=== PATIENT | female | born 1965 | race Caucasian/White ===

== ENCOUNTER 2020-03-26 18:14 | Emergency (ER) | payer MEDICARE, SELFPAY ==
[2020-03-26 18:15] VITALS: BP 131/86; PULSE 101; RESP 15; TEMP 36.8; O2SAT 97; BMI 19.3
--- NOTE | 2020-03-26 18:21 | ED.RN ---
states this is the worst ever seizure.
--- NOTE | 2020-03-26 18:37 | CT_ITS ---
We are attempting to reach an attending provider to discuss findings. An addendum with communication details will be sent when the communication is complete. STUDY: CT BRAIN WITHOUT CONTRAST REASON FOR EXAM: Female, 55 years old. 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 H/O 2 BRAIN TUMORS, FLUID FILLED CYST ON TOP OF HEAD. SX IN FEBRUARY, SUTURES ON TOP OF HEAD. RADIATION DOSAGE (If Supplied By Facility): CTDIvol = ( 44.99 ) mGy, DLP = ( 745.49 ) mGycm TECHNIQUE: Transaxial CT imaging of the brain was performed without administration of intravenous contrast material. Individualized dose optimization techniques were used for this CT. COMPARISON: July 25, 2014 FINDINGS: Left frontal hypodense lesion with a dense layering hematocrit effect noted dependently. This demonstrates interval evolution of previous exam. It measures 3.2 x 3 cm in AP and transverse dimensions. 2 drains terminate within it. There is a 6 x 5 mm coarse calcification noted centrally. This may represent a bone fragment from the left frontal jenny hole. Adjacent dense 5 mm hemorrhage is also suspected. New left frontal drain terminates just lateral to the left lateral ventricle. There appears to be a secondary smaller catheter terminating in the left frontal lobe more anteriorly. Left frontal jenny hole and metallic plate. Subjacent biconvex hypodense extra-axial fluid collection measures 9 x 38 mm. The right occipital cyst appears larger and measures 4.2 x 2.7 cm in transverse dimensions. Normal size ventricles and extra-axial spaces for the patient''s age. Normal white matter tracts of the cerebral hemispheres. Normal basal ganglia and thalami. Normal brainstem. Normal cerebellum. There is no intracranial hemorrhage. There are no findings of an acute ischemic infarction. Normal visualized paranasal sinuses. CT/Brain/Head without Contrast IMPRESSION: Left frontal lesion now appears cystic and hemorrhagic status post placement of 2 frontal drains. There is also a hypodense extra-axial fluid collection which may represent remote hemorrhage or a hygroma. Possible depressed bone fragment versus dystrophic calcification. Interval enlargement right occipital cyst. Electronically Signed: William Marshall MD at 20:07 EDT , Service support ,
[2020-03-26 19:07] LABS: Absolute Lymphocyte Count 1.48 X10^3/uL (0.83-4.51); Absolute Neutrophil Count 1.3 X10^3/uL (2.0-7.7); Basophil# 0.06 X10^3/uL; Basophil% 1.6 % (0-1); Eosinophil# 0.29 X10^3/uL; Eosinophils% 7.8 % (0-5); Hematocrit 28.5 % (37-47); Hemoglobin 8.9 g/dL (12.0-15.0); Lymphocyte # 1.48 X10^3/ul (4.0); Lymphocyte % 39.6 % (19-41); Mean Corp Hgb Conc 31.2 g/dL (32-36); Mean Corpuscular Hgb 29.4 pg (27.0-32.0); Mean Corpuscular Volume 94.1 fL (81-99); Mean Platelet Vol. 10.9 fl (6.2-12.0); Monocyte# 0.59 X10^3/uL; Monocyte% 15.8 % (0-10); NRBC Flagged by Analyzer 0 % (0-5); Neutrophil # 1.31 X10^3/uL (2.7-7.7); Neutrophil % 34.9 % (47-70); Platelet Count 135 K/mm3 (150-450); RBC Distribution Width CV 18.4 % (11.6-14.6); Red Blood Count 3.03 M/mm3 (4.2-5.4); White Blood Count 3.7 K/mm3 (4.4-11.0)
[2020-03-26] MEDS: Ondansetron 4 MG/2 ML Vial IV (19:18)
[2020-03-26] MEDS: LORazepam 2 MG/ML Syringe 1 MG IV ×2 (19:18→19:40)
[2020-03-26 19:19] LABS: Anion Gap 5 (5-15); BUN 12 mg/dL (7-18); BUN/Creat Ratio 16.6 RATIO (10-20); Calcium,Total 8.7 mg/dL (8.5-10.1); Chloride 107 mmol/L (98-107); Creatinine, Serum 0.72 mg/dL (0.55-1.02); EST Glomerular Filtration Rate 88 mL/min (>60); Est Glom Filt Rate - Afr Amer 107 mL/min (>60); Estimated Creatinine Clearance 72.41 ml/min; Glucose 89 mg/dL (74-106); Potassium 3.8 mmol/L (3.5-5.1); Sodium Level 141 mmol/L (136-145)
[2020-03-26 19:21] VITALS: BP 142/90; PULSE 92; RESP 20; O2SAT 94
[2020-03-26 20:12] VITALS: BP 115/79; PULSE 85; RESP 14; O2SAT 94
--- NOTE | 2020-03-26 20:13 | ED.RN ---
pt's focal seizure has stopped at this time.
[2020-03-26 20:30] LABS: International Normalized Ratio 1.1; Prothrombin Time (Protime)PT. 14.1 SECONDS (11.7-14.9)
[2020-03-26 20:39] LABS: Partial Thromboplast Time 91.7 Seconds (24.1-36.2)
[2020-03-26 20:42] VITALS: BP 104/65; PULSE 78; RESP 14; O2SAT 95
[2020-03-26 21:06] LABS: Partial Thromboplast Time 39.6 Seconds (24.1-36.2)
--- NOTE | 2020-03-26 21:35 | ED.VISSUMM ---
- ER Visit Summary Date of Service: 03/26/20 Chief Complaint: Seizure History of Present Illness: The patient is a [address] Mccann a neuro oncologist and Dr. Estes a neurosurgeon at [facility]. She has a history of breast cancer with metastases to the brain. She also has a cyst on her brain. She has a history of grand mal seizures. The last one prior today was March 07. reports patient had a grand mal seizure that last approximately 5 minutes just prior to coming emergency department. She then developed focal seizures that consist of her right hand twitching and blinking. This has not stopped over the past [address] Jones he last week and had adjustment of her Ommaya reservoir to access the cyst. She was scheduled to see him again next after having an MRI next Tuesday. Physical Examination: Vitals: Stable. Afebrile. General: Well-nourished and well-developed. Head: Normocephalic atraumatic. Neck: Supple, no lymphadenopathy. No JVD. Nontender. Cardiovascular: Regular rate and rhythm. No murmurs. Respiratory: No respiratory distress. Clear to auscultation bilaterally. Abdominal: Soft, nontender, nondistended, normal bowel sounds. No guarding, rebound, or peritoneal signs. Back: Nontender. Extremities: Nontender, no edema. Skin: Normal color, no rash. Neurologic: Alert and oriented ?3. Cranial nerves II through XII are intact. Normal strength and sensation. Patient does have twitching of her right hand, right face, and blinking of her right eye that she cannot control. She is able to speak through this. Psych: Normal affect. Test Results: CBC shows a white count of 3.7 with an H&H of 8.9 and 28.5, platelets 135, stable neutrophils of 35, monocytes of 16, eosinophils of 8. Chem-7 is normal. INR is 1.1. PTT is 91.7. However, I suspect that this was a short draw and repeat is 39.6. Clinical Impression(s) from Imaging Studies Brain CT 03/26/20 18:37 IMPRESSION: Left frontal lesion now appears cystic and hemorrhagic status post placement of 2 frontal drains. There is also a hypodense extra-axial fluid collection which may represent remote hemorrhage or a hygroma. Possible depressed bone fragment versus dystrophic calcification. Interval enlargement right occipital cyst. Electronically Signed: William Marshall MD at 20:07 EDT , Service support , ADDENDUM: 03/26/202042 IMPRESSION: Left frontal lesion now appears cystic and hemorrhagic status post placement of 2 frontal drains. There is also a hypodense extra-axial fluid collection which may represent remote hemorrhage or a hygroma. Possible depressed bone fragment versus dystrophic calcification. Interval enlargement right occipital cyst. N.B. : The above information has been verbally conveyed by William Marshall MD to Jeremías Clifford MD, , on 03/26/2020 20:36:56 (ET). Electronically Signed: William Marshall MD at 20:07 EDT , Service support , Emergency Department Course and Treatment: Patient was given a milligram of Ativan IV with improvement in her focal seizures, but they did continue. She is given another dose of Ativan IV and they have completely resolved. She is resting comfortably. She refused pain medications. Treatment Plan: Patient was discussed with Dr. Lozano, a neurosurgeon at [facility], who is accepted her in transfer. Disposition: Transferred in improved, but serious condition. Impression: 1. Focal seizures. 2. Left frontal cyst with hemorrhage. 3. Breast cancer with metastases to brain. 4. Critical care time 30 minutes. This note was generated with [employer] software. It may contain incorrect words, spelling, and punctuation that were not noted in review of the chart prior to signing ED Disposition - Plan for ED Patient: Referrals: Marcos Londono DO [Primary Care Provider] -
--- NOTE | 2020-03-26 21:36 | ED.RN ---
[facility], h62, bed [address]. dr. horta. [phone]
[2020-03-26 22:00] VITALS: BP 127/86; PULSE 85; RESP 14; O2SAT 98
== END 2020-03-26 23:03 | disposition short-term general hospital (02) ==
PROVIDERS: Emergency Provider Emergency Medicine; PCP Student in an Organized Health Care Education/Training Program
DX: I61.1 Nontraumatic intracerebral hemorrhage in hemisphere, cortical (principal); G93.0 Cerebral cysts; G40.409 Other generalized epilepsy and epileptic syndromes, not intractable, without status epilepticus; C79.31 Secondary malignant neoplasm of brain; Z85.3 Personal history of malignant neoplasm of breast
CPT/HCPCS: 36591; 70450; 80048; 85025; 85610; 85730; 96374; 96375; 96376; 99285; J7030; A4216; J2405

== ENCOUNTER 2020-09-09 13:00 | Outpatient (RCR) | payer MEDICARE, MEDICAID, SELFPAY ==
--- NOTE | 2020-05-05 14:23 | HP.OTEVAL_ITS ---
Patient's Visit Information ALVERTO KABA is a 55 year old F, referred to Occupational Therapy by MALIHA MONZON, with a diagnosis of brain tumor, weakness in right hand. Date of Evaluation: 05/05/20 Occupational Therapist: Camelia Jin, OTR/Yadira, CHT - Subjective This 55 year old female was seen for OT eval with dx of right hand weakness, brain tumor. pt states she has noticed weakness. pt states she has noticed weakness of her dominate hand for several months. pt states weakness has improved some but most difficulty is with writing and eating. pt would like to get more function back. - ADLs Dressing: Button shirt, Pants, Shoes Fasteners: Tie shoes, Buttons, Zippers, Snaps Eating: Bring food to mouth, Use silverware, Cut food Grooming: Squeeze toothpaste on, [place] teeth - ROM ROM Comments: pt demo ROM WNL - Strength [employer] Ax Consultant: right 45# left 55# Lateral Pinch: right 8# left 10# Tripod Pinch: right 8# left 10# Tip-to-Tip Pinch: right 2# left 6# - Sensation Sensation Comments: denies - In-Hand Manipulation Finger to Palm Translation: Mild - Right, Moderate - Right, Normal - Left Palm to Finger Translation: Mild - Right, Normal - Left Shift: Mild - Right, Normal - Left Comments: pt demo a tremor with writing. slow initiation of writing - Quick DASH-Disab of Arm,Shoulder& Hand Quick DASH Score: 43.1800 - Goals Goal:: pt will demo a increase in right control panel operator strength by 15# or greater to return pt to PLOF with ADLs and IADls by d/c Goal:: pt will demo the ability to use right UE for self feeding 4/5 trials by d/c. pt will demo the ability to write name legibly 4/5 trials by d/c. Pt will demo the ability to manipulate fasteners at ind. level 4/5 trials to increase pts ind. with ADls and IADls by d/c - Rehabilitation General Assessment: pt demo with good functional ROM of right UE but limited with strength and motor planning to perform ADLs, IADls and wrting tasks at a IND. level. pt would benefit from skilled OT services 2-3 x week for 6 weeks to help pt reach her maximum rehab potential. Today therapsit ed. pt on FMS tasks to increase motor planning. will cont. to challenge pt with PRE and possible use of ad. eq. pt demo understanding and agree to POC. Due to pts delay in word response and difficulty with reading and recall of letters and letters of her last name pt would benefit from skilled Speech therapy services. Therapist chauncey peters to contact PA for speech order waiting on reply. Rehabilitation Potential: Good - Anticipated Interventions A/AAROM/PROM, Strengthening, Joint Protection/Energy Conservation, Ergonomic Education, Fine Motor Coord/Marky, Neuro Reeducation, Visual/Perceptual Skills, ADL Training, Education re assistive Equipment - Visit Plan Frequency: 2-3x /Week Duration: 6 Weeks TEXT: Thank you for the opportunity to evaluate your patient. For Medicare and Medicare HMO plans, please review the plan of care and approve it. It will need to be FAXED BACK to us at [phone] for Medicare purposes. Please let me know if there are questions or concerns regarding this plan of care. Physician Signature: Date:
--- NOTE | 2020-07-01 13:53 | HP.SP.AD ---
History - History Date of Eval: 07/01/20 Medical Diagnosis (from RX): Brain metastasis Date of Onset of Diagnosis: 06/02/2020 Previous speech therapy: No Other Relevant Medical History/Diagnoses/Surgery: Pt had breast cancer in 2011, which spread to the brain in 2013. Her cancer has since been removed: surgeries for brain tumor removal in 2013 and 2015. Since, she has had additional surgeries for cyst drainage in 2017 and 2019. Most recent surgery was for cyst fenestration in April 2020. Pt also reported she has constant tinnitus bilaterally, worse on the left side. Since 2018, the pt reported she has had cognitive-linguistic difficulties, including difficulty with word retrieval, slower rate of speech especially when tired, and difficulty with short term memory. She noted her symptoms get better following her surgeries, then will worsen over time. Pt suspects her symptoms correlate with cyst growth. 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 Visual Assistive Devices: Glasses Patients Living Arrangements: With Significant Other Patient Allergies - Allergies Allergies Gadolinium-MRI Contrast Medium [Gadolinium-Contrast Medium - MRI] Allergy (Unknown, Verified 03/26/20 19:49) Swelling arm pain & swelling clarithromycin [From Biaxin] Allergy (Verified 03/26/20 19:49) Other codeine Allergy (Verified 03/26/20 19:49) Vomiting lamotrigine [From Lamictal] Allergy (Verified 03/26/20 19:50) Hives CLQT - CLQT CLQT Administered: Yes CLQT: Cognitive Linguistic Quick Test (CLQT) is a criterion - referenced assessment designed for adults between the ages of 18 and 89 with known or suspected neurological dysfuntions. The CLQT is to assess strength and weaknesses in five cognitive domains. Severity ratings are within normal limits, mild, moderate, severe deficits. The subtests are as follows: Date: 07/01/20 - Attention Attention: WNL - Memory Memory: Mild - Executive Functions Executive Functions: WNL - Language Language: Mild - Visuospatial Skills Visuospatial Skills: WNL - Composite Severity Rating Composite Severity Rating: WNL - Clock Drawing Severity Rating Clock Drawing Severity Rating: WNL - CLQT Comments 07/01/2020 Pt presents with mild cognitive-linguistic impairment characterized by functional deficits in fluency, short term memory, numerical processing. Although pt scored WNL for executive functions (planning, organization, and reasoning), pt would benefit from therapy addressing these cognitive processes as pt exhibits delayed processing completing tasks. In conversation, she presents with mild/moderate deficits in word retrieval, which negatively affects her conversational fluency and her ability to convey messages in social and medical settings. Pt additionally noted she manages her finances at home, but has great difficulty with numerical processing. Plan - Plan Plan: Will recommend cognitive-linguistic therapy to address functional deficits in short term memory, fluency, numerical processing, and executive functions. Without cognitive-linguistic therapy, pt is at risk for decreased independence completing daily living tasks (personal finances) and increased difficulty communicating social and medical wants and needs. - Recommendations Treatment Warranted: Yes - Frequency Frequency: 1x/Week Duration: Indefinite - Prognosis Prognosis: Excellent - Goals that are Established: Determination:: Goals will be added/modified as deemed necessary and appropriate. Therapy will be discontinued when results of re-evaluation indicate therapy is no longer needed or lack of progress has been documented. - Goal #1-5 Goal #1: Pt will verbalize delayed recall of novel information (e.g. reading passage, functional message) with 90% accuracy given min verbal cues for use of strategies across 3 consecutive sessions to improve short term memory. Goal #2: Pt will complete generative naming tasks X10-15 words in 1 minute given min verbal cues across 3 consecutive sessions to improve conversational fluency. Goal #3: Pt will complete complex numerical processing tasks with 90% accuracy independently across 3 consecutive sessions to . Goal #4: Pt will complete executive functioning tasks (e.g. reasoning, organization, planning) with 90% accuracy given min verbal cues for use of strategies across 3 consecutive sessions to promote independence completing daily living tasks. Education - Patient has Indicated that the Following Identified Educational Needs: None The Patient has indicated that they have no educational or learning abilities that may effect their care.: Yes - Patient Instruction Patient Education: Diagnosis, Treatment Plan, Goals Person Taught: Patient Teaching Method: Discussion Response to teaching: Verbalize understanding
--- NOTE | 2020-07-22 14:34 | HP.OTDCSUM ---
It has been my pleasure to treat ALVERTO KABA under orders from MALIHA MONZON, for the diagnosis of brain tumor, weakness in right hand for a total of 17 visit(s). Please see the following information for a summary of their discharge status. % Improvement: 80 Objective/Function: pt alex ex. well will progress to H&W. right orthopaedic doctor strength 55#. left orthopaedic doctor strength 50#. right lateral pinch 11# a increase from 8#. right tripod pinch 13# a increase from 8#. tip pinch 9# a increase from 2#. pt has made good gains with strength and FMS. p Patient Goals: Regain Strength, Improve Fine Motor Skills, Use Hand/Wrist/Arm Normally Again, Be More Independent in ADLS Goal:: pt will demo a increase in right orthopaedic doctor strength by 15# or greater to return pt to PLOF with ADLs and IADls by d/c Goal:: pt will demo the ability to use right UE for self feeding 4/5 trials by d/c. pt will demo the ability to write name legibly 4/5 trials by d/c. Pt will demo the ability to manipulate fasteners at ind. level 4/5 trials to increase pts ind. with ADls and IADls by d/c Plan: D/C with HEP and transition to H&W If there are questions or concerns regarding this patient's occupational therapy, please fell free to call me at [phone]. Thank you for the referral of this patient. Sincerely, Camelia Jin, OTR/L, CHT
--- NOTE | 2020-07-30 10:56 | HP.PTEVAL ---
Patient's Visit Information ALVERTO KABA is a 55 year old F referred to Physical Therapy by MALIHA MONZON with a diagnosis of Brain tumor, gait. Date of Evaluation: 07/29/20 Physical Therapist: Dwight Puentes DPT - Visit Plan Frequency: 1x/Week Duration: 4-6 Weeks Plan: Plan to inc BLE strength, inc core strength and stability, and inc dynamic balance. Interventions for dynamic balance may include gait activities w/ multitasking components since impairments seem to be inline w/ multitasking during gait. Since pt is only coming in 1x per week a focus should be on a good LE and core strengthening HEP. Also plan to perform 6MWT next session. - Subjective Pt had brain tumor in past, removed via surgery April 09. Was going to to OT for R hand weakness. Has noticed BLE weakness, but more so on the R. Also feels that she loses her balance sometimes more to the R. Denies n/t. History of R KIARA d/t AVN and states that her L hip sometimes hurts when she stands form a chair and negotiates stairs, also d/t AVN. Sedentary lifestyle, states she sleeps most of the time. Has one flight of stairs at home and a few YAYO home. handles all cleaning, laundry, and cooking. - Pain L hip Pain Intensity (Out of 10): 0 Pain Intensity Range: 0, 2 Comment: Hurts sometimes when standing from a chair or negotiating stairs. - Objective POSTURE: WNL. Goof posture noted. no lateral wt. shifting noted. PALPATION: WNL. No pain with palpation of BLEs. ROM: WNL. Pt. had good ROM of BLEs, good HS length. No pain with ROM testing. MMT: L hip IR 3+/5; R hip ER 3+/5, IR 3/5; R knee flex 3/5; R ankle dorsi 3+/5. All other LE movements 4-/5. NEURO: WNL. No sensory changes. No DTR of BLEs. GAIT: Dec gurpreet, no other deviations noted. Negotiated 1 flight of stairs w/ reciprocal pattern and no issues. BALANCE: Normal static balance. Dec dynamic balance. Pt did not display LOB during FGA, but did stray from course during vertical head turns, eyes closed, and w/ narrow JUAN CARLOS. 5x [id number]: 19.2 s - Balance Scores Functional Gait Assessment Score: 24 % Disability: 20.0000 - Goals Goal 1:: LTG: Pt to be I w/ HEP. Goal Time Frame: 4-6 Weeks Goal 2:: STG: Pt will display inc LE strength by at least 1/2 grade in all planes. Goal Time Frame: 2-4 Weeks Goal 3:: LTG: Pt will display inc LE stength by at least 1 grade in all planes. Goal Time Frame: 4-6 Weeks Goal 4:: LTG: Pt will display RLE strength equal to that of LLE. Goal Time Frame: 4-6 Weeks Goal 5:: LTG: Pt will display inc dynamic balance by scoring at least 28 on the FGA. Goal Time Frame: 4-6 Weeks - Rehabilitation Potential Physical Therapy Diagnosis: Pt displays dec BLE strength, dec core strength, and dec dynamic balance. PT intervention indicated to address stated deficits and inc functional mobility by increasing BLE strength, increasing core strength and stability, and increasing dynamic balance. Rehabilitation Potential: Good - Anticipated Interventions Patient/Client Instruction: Educate patient on: Plan of Care, Benefits of Fitness Program For the Purpose of:: To improve health and function, To foster healthy habits, To improve self management Therapeutic Exercise to Include: Strength training, Endurance training, Balance training, Coordination, Flexibilty training, Gait and locomotor training, Dynamic Lumbar Stabilization For the Purpose of:: To improve muscle performance and motor function, To improve performance and independence with ADL's, To improve ability of physical actions for home/community/work/leisure, To improve gait and locomotor functions, To increase flexibility/ROM, To improve endurance, To improve balance, To improve safety with gait Thank you for the opportunity to evaluate your patient. For Medicare and Medicare HMO plans, please review the plan of care and approve it. It will need to be FAXED BACK to us at [phone] for Medicare purposes. For Medicare only, by signing this I certify the plan of care. Please let me know if there are questions or concerns regarding this plan of care. Physician Signature: Date:
--- NOTE | 2020-09-09 14:56 | HP.SP.DC_ITS ---
ST Discharge Summary - Discharged: Discharge: The pt has been discharged from speech therapy services effective 09/09/2020 per pt request. She feels that she has learned ample compensatory strategies to improve memory, organization, and word retrieval and feels comfortable discharging from skilled speech therapy at this time. The pt has participated in speech therapy since 07/01/2020 and attended 9 additional sessions where she has participated in cognitive training tasks and been trained in strategies to improve memory (association, visualization, chunking, repetition), organization (visual aids for medication counting/sorting, self- talk), and word retrieval (semantic feature analysis, alphabet scanning). Would recommend speech therapy services in the future if pt notes increased difficulty in the above mentioned areas of cognition as the pt was highly motivated and demonstrated great progress during POC.
== END 2020-09-09 19:00 | disposition home or self-care (01) ==
LOC: PT 13:00
PROVIDERS: PCP Student in an Organized Health Care Education/Training Program
DX: D49.6 Neoplasm of unspecified behavior of brain (principal); R26.9 Unspecified abnormalities of gait and mobility; C79.31 Secondary malignant neoplasm of brain; R47.89 Other speech disturbances
CPT/HCPCS: 92507; 92523; 97110; 97161; 97164; 97166; 97530

== ENCOUNTER 2020-12-11 08:26 | Outpatient (RCR) | payer MEDICARE, MEDICAID, SELFPAY ==
[2020-12-11] MEDS: COVID-19 VACC, MRNA(PFIZER)/PF 30 MCG/0.3 ML SYRINGE IM (07:50)
[2021-01-01] MEDS: COVID-19 VACC, MRNA(PFIZER)/PF 30 MCG/0.3 ML SYRINGE IM (07:22)
== END 2020-12-12 23:59 ==
LOC: IMMUN 08:26
PROVIDERS: PCP Student in an Organized Health Care Education/Training Program; Visit Provider Family Medicine
DX: Z23 Encounter for immunization (principal)
CPT/HCPCS: 0001A; 0002A

== ENCOUNTER 2021-06-01 21:46 | Emergency (ER) | payer MEDICARE, MEDICAID, SELFPAY ==
[2021-06-01 21:47] VITALS: BP 138/88; PULSE 95; RESP 16; TEMP 36.4; O2SAT 98; BMI 21.4
--- NOTE | 2021-06-01 22:57 | EKG12_ITS ---
Test Reason : Blood Pressure : / mmHG Vent. Rate : 095 BPM Atrial Rate : 095 BPM P-R Int : 178 ms QRS Dur : 082 ms QT Int : 368 ms P-R-T Axes : 054 044 057 degrees QTc Int : 462 ms Normal sinus rhythm Normal ECG Confirmed by JESSE BALDERRAMA, PATSY ([id number]), scientific editor JAVI TROY ([id number]) on 06/04/2021 10:25:20 AM Referred By: Confirmed By:PATSY MOLINA MD
--- NOTE | 2021-06-01 23:06 | ED.RN ---
NO OLD EKGS ON FILE
[2021-06-01] MEDS: Ondansetron 4 MG/2 ML Vial IV (23:32)
[2021-06-01 23:42] LABS: Absolute Lymphocyte Count 0.56 X10^3/uL (0.83-4.51); Basophil# 0.03 X10^3/uL; Basophil% 0.6 % (0-1); Eosinophil# 0.04 X10^3/uL; Eosinophils% 0.8 % (0-5); Hematocrit 34.7 % (37-47); Hemoglobin 11.6 g/dL (12.0-15.0); Lymphocyte # 0.56 X10^3/ul (0.83-4.51); Lymphocyte % 10.9 % (19-41); Mean Corp Hgb Conc 33.4 g/dL (32-36); Mean Corpuscular Hgb 31.3 pg (27.0-32.0); Mean Corpuscular Volume 93.5 fL (81-99); Mean Platelet Vol. 9.7 fl (6.2-12.0); Monocyte# 0.46 X10^3/uL; NRBC Flagged by Analyzer 0 % (0-5); Neutrophil # 3.99 X10^3/uL (2.7-7.7); Neutrophil % 77.9 % (47-70); POSITIVE DIFFERENTIAL YES; Platelet Count 125 K/mm3 (150-450); RBC Distribution Width CV 13.1 % (11.6-14.6); RBC Distribution Width SD 44.7 fl (35.1-43.9); Red Blood Count 3.71 M/mm3 (4.2-5.4); White Blood Count 5.1 K/mm3 (4.4-11.0)
[2021-06-01 23:46] LABS: Differential Indicated SCAN CRITERIA MET
[2021-06-01 23:54] LABS: ALB/GLOB Ratio 1.2 RATIO (0.9-2.4); AST(SGOT) 67 U/L (15-37); Alanine Aminotransfer ALT/SGPT 123 U/L (13-56); Alkaline Phosphatase 303 U/L (45-117); Anion Gap 7 (5-15); BUN 13 mg/dL (7-18); BUN/Creat Ratio 25.4 RATIO (10-20); Calcium,Total 8.6 mg/dL (8.5-10.1); Chloride 103 mmol/L (98-107); Creatinine, Serum 0.51 mg/dL (0.55-1.02); EST Glomerular Filtration Rate 132 mL/min (>60); Est Glom Filt Rate - Afr Amer 159 mL/min (>60); Estimated Creatinine Clearance 105.09 ml/min; Globulin 3.2 g/dL (2.2-4.2); Glucose 116 mg/dL (74-106); Potassium 3.4 mmol/L (3.5-5.1); Protein, Total 7.2 g/dL (6.4-8.2); Sodium Level 135 mmol/L (136-145)
--- NOTE | 2021-06-02 00:05 | CT_ITS ---
STUDY: CT BRAIN WITH AND WITHOUT CONTRAST REASON FOR EXAM: Female, 56 years old. headache N/Vbrain mets RADIATION DOSAGE (If Supplied By Facility): CTDIvol = ( 44.99 ) mGy, DLP = ( 1479.73 ) mGycm TECHNIQUE: Transaxial CT imaging of the brain was performed pre and post contrast administration. The examination was performed with intravenous administration of IV 50 ML ISO 300. Individualized dose optimization techniques were used for this CT. COMPARISON: 03/26/2020. FINDINGS: Normal soft tissue structures. The patient is status post left-sided frontal craniotomy near the vertex. There is a left frontal drainage catheter in place. Moderate generalized brain atrophy. There is left frontal encephalomalacia with calcification, sequela of previous procedure and presumed resection of a lesion at this level. Unchanged cystic structure corresponding to the right occipital lobe measuring 4.4 x 2.7 cm. Remainder of the brain parenchyma is unremarkable Normal basal ganglia and thalami. Normal brainstem. Normal cerebellum. There is no intracranial hemorrhage. There are no findings of an acute ischemic infarction. Normal visualized paranasal sinuses. CT/Brain/Head W/WO Contrast IMPRESSION: Postoperative changes at the level of the left frontal lobe with drainage catheter encephalomalacia. Resolution of previously seen left frontal subdural collection. Stable right occipital cystic structure. Remainder of the brain parenchyma unremarkable. Electronically Signed: Gillian Nunez MD at 0:59 EDT , Service support ,
[2021-06-02 00:14] LABS: Differential Comment SCANNED
--- NOTE | 2021-06-02 01:37 | EDS_ITS ---
HPI History of Present Illness Chief Complaint: Seizure Detail of Chief Complaint: According to she did not have a seizure. Informant: patient and spouse/S.O. Onset/Context/Timing Onset: Hours Context: Sudden Onset Timing: Intermittent Quality: unable to move Current Severity: Gone Maximum Severity: Unknown Worsened by: Unknown Relieved by: Nothing Associated Symptoms Associated Symptoms: Unable to move Narrative Narrative: Patient is a 56-year-old woman with history of breast cancer with metastasis to the brain was undergone gamma knife surgery x2. She had recent surgery for cystic lesion of her brain. She does have a seizure disorder secondary to this. She also has a history of anxiety. Patient denies headache, double vision, blurred vision loss of vision. She denies ringing in ears or decreased hearing. She denies trouble with speech or swallowing. She denies upper respiratory symptoms. She denies cardiac respiratory symptoms. She denies nausea, vomiting or diarrhea. She denies dysuria, frequency, urgency or hematuria. She does shake her leg. She does not have history of restless leg syndrome. Prior similar symptoms: No Recent Illness/Hospitalization: No PFSH PFS Medical History (Updated 06/02/21 @ 01:[address] Osmin Goddard MD) Metastatic breast cancer Status post gamma knife treatment Home Medications lacosamide 50 mg PO BID 03/26/20 [History Last Taken Unknown] lacosamide 200 mg PO BID 03/26/20 [History Last Taken Unknown] lorazepam 1 mg PO Q8H 03/26/20 [History Last Taken Unknown] zonisamide [Zonegran] 2 tab PO QHS 03/26/20 [History Last Taken Unknown] Allergy/AdvReac Type Severity Reaction Status Date / Time Gadolinium-MRI Contrast Allergy Unknown Swelling Verified 06/01/21 21:50 Medium [Gadolinium-Contrast Medium - MRI] clarithromycin [From Biaxin] Allergy Other Verified 06/01/21 21:50 codeine Allergy Vomiting Verified 06/01/21 21:50 lamotrigine [From Lamictal] Allergy Hives Verified 06/01/21 21:50 Surgical History (Updated 06/02/21 @ 01:[address] Osmin Goddard MD) H/O craniotomy Social History (Updated 06/02/21 @ 01:[address] Osmin Goddard MD) household members: spouse Smoking Status: Former smoker alcohol intake: current alcohol intake frequency: other substance use type: does not use ROS ROS ED ROS Narrative was the primary informant. There was no eye contact during the history or physical exam. Review of Systems ROS Unobtainable: other Constitutional Constitutional ED: Denies chills, fever(s) or subjective Eyes Eyes: Denies blurry vision, change in vision or diplopia ENT ENT ED: Denies ear pain, rhinorrhea or sore throat Cardiovascular Cardiovascular: Denies chest pain or palpitations Respiratory/Chest Respiratory/Chest: Denies cough, dyspnea or dyspnea on exertion Gastrointestinal Gastrointestinal: Denies abdominal pain, diarrhea, nausea or vomiting Genitourinary Genitourinary ED: Denies dysuria, hematuria or urinary frequency Musculoskeletal Musculoskeletal: Denies arthralgias, back pain, myalgias or neck pain Integumentary Denies rash Neurologic Neurologic: Reports weakness; Denies headache(s) or paresthesias Allergic/Immunologic Allergic/Immunologic ED: Denies urticaria EXAM Physical Exam Const Vital Signs: 06/01/21 21:47 Temperature 97.6 F L Temperature Source Temporal Pulse Rate 95 Respiratory Rate 16 Blood Pressure 138/88 H Blood Pressure Mean 104 Pulse Ox 98 Oxygen Delivery Method Room Air Positive well nourished and well developed General Appearance ED: well developed and NAD HEENT Reports TM's clear and moist mucous membranes HEENT Narrative: Head atraumatic normocephalic. Ears normal. Nares patent. Posterior pharynx without erythema or exudate. Tympanic Membrane ED: Yes TM's clear Eyes PERRL and EOMs intact bilaterally General Eye ED: Negative for pale conjunctiva or scleral icterus Neck no lymphadenopathy, supple and no JVD Chest Wall inspection of chest normal Resp normal respiratory effort and clear to auscultation bilaterally Cardio regular rate and regular rhythm GI normal to inspection, nondistended, normoactive bowel sounds, non-tender and non-distended Palpation: soft Back/Spine no CVA tenderness Cervical Spine: Negative for cervical spine tenderness Thoracic Spine / Upper Back: Negative for thoracic spinal tenderness or paraspinal muscle tenderness Extremity normal to inspection General Extremety ED: Negative for edema or tenderness General Extremity: Negative for edema Neuro oriented x3, CN's II-XII intact bilaterally and no sensory deficits noted Neuro Narrative: There is no dysmetria. There is no clonus. She has a Babinski sign noted on the right. Sensorium / Orientation: alert Motor Exam: strength 5/5 throughout Psych mental status grossly normal Psych Narrative: Affect is depressed. Skin no rashes or lesions noted, no wounds and skin turgor normal MDM MDM MDM Narrative Medical decision making narrative: CT of the head with and without IV contrast to assess brain tumor. CBC was obtained to assess white count and H&H rule out anemia. Comprehensive metabolic panel to assess electrolytes renal function and liver enzymes. Lab Data Attestation: I reviewed the patient's lab results. Lab results narrative: CBC and differential unremarkable. Electrolyte panel and renal function unremarkable. Alkaline phosphatase elevated 303 which may resent bone metastasis. CT of the head revealed acute changes. Labs: Laboratory Results - last 24 hr 06/01/21 06/01/21 23:28 23:28 WBC 5.1 RBC 3.71 L Hgb 11.6 L Hct 34.7 L MCV 93.5 MCH 31.3 MCHC 33.4 RDW Std Deviation 44.7 H RDW Coeff of Janina 13.1 Plt Count 125 L MPV 9.7 Immature Gran % (Auto) 0.800 Neut % (Auto) 77.9 H Lymph % (Auto) 10.9 L Churchill % (Auto) 9.0 Eos % (Auto) 0.8 Baso % (Auto) 0.6 Absolute Neuts (auto) 4.0 Absolute Lymphs (auto) 0.56 L Nucleated RBC % 0 Differential Comment SCANNED Sodium 135 L Potassium 3.4 L Chloride 103 Carbon Dioxide 25.0 Anion Gap 7 BUN 13 Creatinine 0.51 L Estim Creat Clear Calc 105.09 Est GFR (MDRD) Af Amer 159 Est GFR (MDRD) Non-Af 132 BUN/Creatinine Ratio 25.4 H Glucose 116 H Calcium 8.6 Total Bilirubin 0.20 AST 67 H ALT 123 H Alkaline Phosphatase 303 H Total Protein 7.2 Albumin 4.0 Globulin 3.2 Albumin/Globulin Ratio 1.2 Radiography Diagnostic Testing: Radiology Impression Brain CT 06/02/21 00:05 IMPRESSION: Postoperative changes at the level of the left frontal lobe with drainage catheter encephalomalacia. Resolution of previously seen left frontal subdural collection. Stable right occipital cystic structure. Remainder of the brain parenchyma unremarkable. Electronically Signed: Gillian Nunez MD at 0:59 EDT , Service support , EKG Initial EKG: Attestation: I personally reviewed and interpreted this EKG as follows: Interpretation: Sinus Rhythm (The EKG is normal. Ventricular rate is 95. WY interval 178 ms. Cures duration 82 ms. QT duration 368 ms. Cavalier is normal.) Discharge Plan Triage Chief Complaint: Seizure ED Provider: Osmin Goddard Dx/Rx/DC Orders Instructions: ED ALOC Prescriptions: No Action zonisamide [Zonegran] 100 MG capsule 2 tab PO QHS RF: 0 lorazepam 1 MG tablet 1 mg PO Q8H RF: 0 lacosamide 50 mg tablet 50 mg PO BID RF: 0 lacosamide 200 mg tablet 200 mg PO BID RF: 0 Primary Care Provider: Marcos Londono Referrals: Marcos Londono DO [Primary Care Provider] - As Needed Disposition Disposition: Home, Self Care
[2021-06-02 02:50] VITALS: BP 128/80; PULSE 84; PULSE 87; RESP 15; RESP 21; O2SAT 98
== END 2021-06-02 02:51 | disposition home or self-care (01) ==
PROVIDERS: Emergency Provider Emergency Medicine; PCP Student in an Organized Health Care Education/Training Program
DX: G40.909 Epilepsy, unspecified, not intractable, without status epilepticus (principal); F41.9 Anxiety disorder, unspecified; C50.919 Malignant neoplasm of unspecified site of unspecified female breast; C79.31 Secondary malignant neoplasm of brain; G93.89 Other specified disorders of brain; Z79.899 Other long term (current) drug therapy; Z87.891 Personal history of nicotine dependence
CPT/HCPCS: 36591; 70470; 80053; 85025; 93005; 96374; 99285; Q9967; A4216; J2405

== ENCOUNTER 2021-07-13 11:47 | Outpatient (RCR) | payer MEDICARE, MEDICAID, SELFPAY ==
--- NOTE | 2021-07-13 13:56 | HP.OTEVAL ---
Patient's Visit Information ALVERTO KABA is a 56 year old F, referred to Occupational Therapy by CAMELIA SHUKLA, with a diagnosis of right UE/hand weakness. Date of Evaluation: 07/13/21 Occupational Therapist: Camelia Jin, OTR/Yadira, CHT - Subjective This 56 year old female was seen for OT eval with dx of right side weakness- pt states she had a hip replacement February 2021 and coming out of surgery she had two seizures resulting in a increase right hand/UE weakness. pt also had femoral artery nicked and was in the ICU 5 days 4 units of blood. . Pt is breast cancer and brain tumor survivor. pt states she notices difficulty with right fine motor skills, open containers, and writing. - ADLs Miscellaneous: Use remote control, Use cell phone, Handle money (change), Hold change, Write, Turn pages in book, Operate spray bottle, Operate aerosol cans - ROM ROM Comments: pt demo full ROM of bilateral UE - Strength Shoulder: right 4-/5 left 4-/5 Elbow: right 4-/5 left 4/5 Forearm: right 4-/5 left 4/5 Driver'S License Examiner: right 50# left 50# Lateral Pinch: right 5# left 8# Tripod Pinch: right 4# left 7# Tip-to-Tip Pinch: right 2# left 4# - Nine Hole Peg Right: 44.79 Left: 24.82 Comments: pt demo with a decline in right hand fine motor skills - In-Hand Manipulation Finger to Palm Translation: Mild - Right, Normal - Left Palm to Finger Translation: Mild - Right, Normal - Left Shift: Mild - Right, Moderate - Right, Normal - Left Rotation: Moderate - Right, Normal - Left Comments: pt demo with a decline in right hand fine motor skills for distal finger control and writing - Quick DASH-Disab of Arm,Shoulder& Hand Quick DASH Score: 54.5450 - Goals Goal:: pt will demo a increase in BUE MMT to 4+/5 grossly throughout to increase pts ind, with home mtg tasks by d/c. pt will demo a increase in lateral and tripod pinch by 4# to increase pts ind with ALDs and home mtg tasks by d.c Goal:: pt will demo the ability to write 2 sentences with 1 error legibly in less than 30 sec. by d/c. pt will demo a reduction in 9 hole peg testing time indicating a increase in pts fine motor speed. pt will demo the ability to use phone/tablet with no errors in typing by d/c - Rehabilitation General Assessment: pt demo a decline in right UE use and fine motor skills increasing need of assist or use of non dominate hand for FMS and ADLs. This has limited pts ind. with ADLs and increased risk of dropping self care items- Pt would benefit from skilled OT services 1-2x week for 6 weeks. pt agrees to POC. Rehabilitation Potential: Good - Anticipated Interventions A/AAROM/PROM, Strengthening, Fine Motor Coord/Marky, Neuro Reeducation, Education re assistive Equipment, Education re Diagnosis - Visit Plan Frequency: 2-3x /Week Duration: 6 Weeks TEXT: Thank you for the opportunity to evaluate your patient. For Medicare and Medicare HMO plans, please review the plan of care and approve it. It will need to be FAXED BACK to us at [phone] for Medicare purposes. Please let me know if there are questions or concerns regarding this plan of care. Physician Signature: Date:
--- NOTE | 2021-10-20 10:13 | HP.OT.NRP ---
ALVERTO KABA was seen in my office for initial evaluation on 07/13/21. The following Plan of Care was established for this patient: Initial Frequency: 2-3x /Week Initial Duration: 6 Weeks Anticipated Interventions: A/AAROM/PROM, Strengthening, Fine Motor Coord/Marky, Neuro Reeducation, Education re assistive Equipment, Education re Diagnosis This patient was last seen in our office 07/13/21. Pertinent comments regarding their Occupational therapy will appear below: pt canceled apts due to medical condition- has not rescheduled and due to 30 day lapse in services pt d/c at this time. At this point I will be discontinuing this patient from occupational therapy. I would be happy to see this patient again in the future if found appropriate by the physician. Thank you! Camelia Jin, OTR/L, CHT
== END 2021-07-13 19:00 | disposition home or self-care (01) ==
LOC: OT 11:47
PROVIDERS: PCP Student in an Organized Health Care Education/Training Program
DX: R53.1 Weakness (principal); C79.31 Secondary malignant neoplasm of brain
CPT/HCPCS: 97166